=== PATIENT | male | born 1970 | race Two or more races ===

== ENCOUNTER 2019-12-13 11:21 | Inpatient (IN) | payer MEDICARE, OTHER ==
[~2019-12-13] VITALS: Ht 170.2 cm; Wt 61.7 kg
[2019-12-13] MEDS ORDERED: MAG HYDROX/AL HYDROX/SIMETH 30 ML UDC PO PRN (20:00)
[2019-12-13] MEDS ORDERED: LORAZEPAM 0.5 MG TABLET PO PRN (20:00)
[2019-12-13] MEDS ORDERED: MAGNESIUM HYDROXIDE 30 ML UDC PO PRN (20:00)
[2019-12-13] MEDS ORDERED: ACETAMINOPHEN 325 MG TABLET PO PRN (20:00)
[2019-12-13] MEDS ORDERED: BLOOD SUGAR DIAGNOSTIC 1 EACH STRIP IN ONE (20:00)
[2019-12-13] MEDS ORDERED: TEMAZEPAM 7.5 MG CAPSULE PO PRN (20:00)
[2019-12-13 20:09] VITALS: BP 91/56
[2019-12-13] MEDS ORDERED: ARIP20TA4 PO (21:16)
[2019-12-13] MEDS ORDERED: HYDR-3895 PO (21:16)
[2019-12-13] MEDS ORDERED: ARIP5TAB10 PO (21:16)
--- NOTE | 2019-12-13 22:00 | NUR ---
GPS RN NOTE: ADMISSION NOTE PT ARRIVED ON THE UNIT AT 1935 COMING FROM [facility], PT IS A 49 Y/O MALE PLACED ON A 5150 DUE TO DTS, PER HOLD PT STATED HE HAD VOICES TELLING HIM TO KILL HIMSELF, PT HAS PAST SUICIDE ATTEMPTS. PT MEDICAL HISTORY INCLUDES HEPATITIS C, PSYCHIATRIC HISTORY OF SCHIZOPHRENIA, ANXIETY AND DEPRESSION. PT IS COOPERATIVE, CALM, ISOLATIVE, GUARDED, DEPRESSED, FLAT, BLUNT AFFET, AMBULATORY, CONTINENT. PT ADMITS TO AUDITORY HALLUCINATION PT STATES THE VOICES WERE TELLING HIM TO KILL HIMSELF, WHEN ASKING WHAT THE VOICES ARE SAYING NOW HE STATED "THEY'RE TELLING ME NOT TO TELL YOU ANYTHING", WHEN ASKED WHAT HELPS THEM GO AWAY HE STATED "I DONT KNOW". HE STATED THE VOICES ARE VERY MEAN AND CRITICIZE HIM. PT HAS HISTORY OF DRUG AND ALCOHOL ABUSE, PT STATED HE WAS 6 MONTHS SOBER AND RECENTLY RELAPSED ON METHAMPHETAMINE. PT STATES HE DRINKS A 6PACK OF BEER A DAY AND DOES NOT SMOKE. [facility] [facility] [place] [facility] [place], DOES NOT WORK AND DOES NOT HAVE ANY FAMILY OR FRIENDS HE WISHES US TO NOTIFY OF HIS HOSPITALIZATION. PT IS ADVISED OF HOLD, CONTRABOUND WAS TAKEN FROM PT AND PLACED IN PTS LOCKER. PT WILL BE UNDER THE PSYCHIATRIC CARE OF DR. BRITT AND MEDICAL CARE OF DR. MORILLO. PTS RIGHTS BOOKLET AND ADVISEMENT GIVEN TO PT, PT MADE AWARE OF THE UNIT, ALL NEEDS MET AT THIS TIME. WILL CONTINUE TO MONITOR Q15MIN FOR SAFETY AND BEHAVIOR.
[2019-12-13 23:35] VITALS: BP 91/56
--- NOTE | 2019-12-13 23:37 | NUR ---
GPS RN NOTE MED RECON DONE, WRECKING CAR DRIVER DR. ROWDY ANGEL WAS MADE AWARE. WILL CONTINUE TO MONITOR Q15MIN FOR SAFETY AND BEHAVIOR.
[2019-12-14] MEDS ORDERED: hydrOXYzine PAMOATE 25 MG CAPSULE PO PRN (01:00)
[2019-12-14 07:39] LABS: BASOPHILS % (AUTO) 0.6 % (0.0-2.0); EOSINOPHILS % (AUTO) 2.6 % (0.0-6.0); HEMATOCRIT 44 % (39-51); HEMOGLOBIN 15.2 g/dL (13.5-17.5); LYMPHOCYTES # (AUTO) 1.5 /CMM (0.8-4.8); LYMPHOCYTES % (AUTO) 24.9 % (20.0-44.0); MEAN CORPUSCULAR HGB CONC 35 g/dl (31.0-36.0); MEAN CORPUSCULAR VOLUME 86 fL (80-96); MONOCYTES # (AUTO) 0.4 /CMM (0.1-1.30); MONOCYTES % (AUTO) 6.6 % (2.0-12.0); NEUTROPHILS # (AUTO) 3.9 /CMM (1.8-8.9); NEUTROPHILS % (AUTO) 65.3 % (43.0-81.0); PLATELET COUNT (AUTO) 167 /CMM (150-450)
[2019-12-14 08:00] VITALS: BP 78/48
--- NOTE | 2019-12-14 08:41 | NUR ---
RN NOTE:PATIENT C/O ANXIETY MEDICATED WITH ATIVAN 0.5MG PO X1.
[2019-12-14 08:59] LABS: ALBUMIN 3.5 g/dL (3.4-5.0); BILIRUBIN,TOTAL 0.6 mg/dL (0.2-1.0); CALCIUM, SERUM 8.6 mg/dL (8.5-10.1); CREATININE 0.8 mg/dL (0.6-1.3); TOTAL PROTEIN, SERUM 6.4 g/dL (6.4-8.2)
[2019-12-14] MEDS ORDERED: risperiDONE 1 MG TABLET PO SCH (09:30)
[2019-12-14] MEDS: SERTRALINE HCL 50 MG TABLET PO SCH (09:30)
[2019-12-14] MEDS ORDERED: LORAZEPAM 0.5 MG TABLET PO PRN (09:30)
--- NOTE | 2019-12-14 10:53 | NUR ---
INITIAL DISCHARGE PLAN: Patient resides at home [address] [address], [place] [address] ([phone]) and would like to return home upon discharge. Patient does not have any next of kin to contact at this time. SW will continue to work with patient and MD to ensure a safe and proper discharge plan.
[2019-12-14 16:00] VITALS: BP 87/58
[2019-12-14] MEDS: risperiDONE 1 MG TABLET PO SCH ×2 (17:30→21:07)
[2019-12-14 19:35] VITALS: BP 99/60
[2019-12-15 08:00] VITALS: BP 100/59
[2019-12-15] MEDS: SERTRALINE HCL 50 MG TABLET PO SCH (08:07)
[2019-12-15] MEDS: risperiDONE 1 MG TABLET PO SCH ×3 (08:08→21:00)
--- NOTE | 2019-12-15 12:40 | NUR ---
COORDINATION OF CARE: Pt stated he has a gearcase assembler, Marleen at [address] [place] [address] ([phone]), however SW attempted to call several times and no answer. Left a voicemail and waiting for a return call.
--- NOTE | 2019-12-15 13:34 | NUR ---
SUBSTANCE ABUSE INTERVENTION: Patient was provided with a brief substance abuse intervention and referred to the following substance abuse programs: [facility] Substance Abuse Self-helpline ([phone]); [facility] [address] [place] [address] ([phone]); [facility] [address] [facility] [address] ([phone]); [facility] ([phone]); [facility] ([phone]); [facility] ([phone]); [facility] ([phone]).
[2019-12-15 16:00] VITALS: BP 105/64
[2019-12-15] MEDS: ENSURE ENLIVE 237 ML LIQUID (VANILLA) PO SCH (17:26)
[2019-12-15 20:13] VITALS: BP 101/53
--- NOTE | 2019-12-15 21:07 | NUR ---
GPS-RN NOTE: SCHEDULED RISPERDAL NOT ADMINISTERED DUE TO DECREASED BLOOD PRESSURE. WILL ENDORSE TO THE DAY SHIFT NURSE.
[2019-12-16 08:00] VITALS: BP 99/69
[2019-12-16] MEDS: risperiDONE 1 MG TABLET PO SCH ×2 (08:09→21:17)
[2019-12-16] MEDS: SERTRALINE HCL 50 MG TABLET PO SCH (08:09)
[2019-12-16] MEDS: ENSURE ENLIVE 237 ML LIQUID (VANILLA) PO SCH ×2 (08:09→17:08)
[2019-12-16 16:00] VITALS: BP 100/60
[2019-12-16] MEDS: LORAZEPAM 1 MG TABLET PO PRN (17:26)
--- NOTE | 2019-12-16 17:26 | NUR ---
gps rn note: patient feeling agitated request ativan,ativan 1 mg po q4 hr prn given per order
[2019-12-16 19:43] VITALS: BP 100/66
[2019-12-17 08:00] VITALS: BP 99/65
[2019-12-17] MEDS: risperiDONE 1 MG TABLET PO SCH ×2 (08:15→21:41)
[2019-12-17] MEDS: SERTRALINE HCL 50 MG TABLET PO SCH (08:15)
[2019-12-17] MEDS: ENSURE ENLIVE 237 ML LIQUID (VANILLA) PO SCH ×2 (08:15→17:33)
--- NOTE | 2019-12-17 09:55 | NUR ---
PC HEARING: Patient had his probable cause hearing today and it was upheld for Danger to Self.
[2019-12-17 16:00] VITALS: BP 95/58
[2019-12-17 19:50] VITALS: BP 91/54
[2019-12-17] MEDS: LORAZEPAM 1 MG TABLET PO PRN (20:05)
--- NOTE | 2019-12-17 20:08 | NUR ---
GPS RN NOTE: ANXIETY PT. C/O OF BEING ANXIOUS. ADMINISTERED ATIVAN 1 MG PO PRN ORDERED. WILL CONTINUE TO MONITOR FOR SAFETY AND BEHAVIOR.
[2019-12-18] MEDS: ENSURE ENLIVE 237 ML LIQUID (VANILLA) PO SCH ×2 (07:53→16:40)
[2019-12-18 08:00] VITALS: BP 96/56
[2019-12-18 08:49] LABS: CALCIUM, SERUM 8.4 mg/dL (8.5-10.1); CREATININE 0.8 mg/dL (0.6-1.3); POTASSIUM 4.2 mmol/L (3.5-5.1)
[2019-12-18] MEDS: SERTRALINE HCL 50 MG TABLET PO SCH (09:16)
[2019-12-18] MEDS: risperiDONE 1 MG TABLET PO SCH ×2 (09:16→20:37)
[2019-12-18 16:00] VITALS: BP 98/57
[2019-12-18 20:34] VITALS: BP 94/57
--- NOTE | 2019-12-18 20:37 | NUR ---
GPS RN NOTES: HELD RISPERDAL HELD PTS RISPERDAL 2MG PO SCHEDULED DUE TO BLOOD PRESSURE LOW AND PT ASLEEP. NO SOB. NO RESP DISTRESS. BREATHING EVEN AND UNLABORED. WILL ENDORSE TO DAY SHIFT. CONTINUE TO MONITOR.
[2019-12-19] MEDS: SERTRALINE HCL 50 MG TABLET PO SCH (07:54)
[2019-12-19] MEDS: ENSURE ENLIVE 237 ML LIQUID (VANILLA) PO SCH ×2 (07:54→17:36)
[2019-12-19 08:00] VITALS: BP 91/53
[2019-12-19] MEDS: risperiDONE 1 MG TABLET PO SCH ×2 (10:05→20:37)
[2019-12-19 16:00] VITALS: BP 91/53
[2019-12-19 19:56] VITALS: BP 102/63
[2019-12-20 08:00] VITALS: BP 98/63
[2019-12-20] MEDS: SERTRALINE HCL 50 MG TABLET PO SCH (08:16)
[2019-12-20] MEDS: risperiDONE 1 MG TABLET PO SCH ×2 (08:16→21:00)
[2019-12-20] MEDS: ENSURE ENLIVE 237 ML LIQUID (VANILLA) PO SCH ×2 (08:21→17:31)
[2019-12-20 16:00] VITALS: BP 97/61
[2019-12-20 19:47] VITALS: BP 90/56
[2019-12-20 20:19] VITALS: BP 90/56
--- NOTE | 2019-12-20 21:29 | NUR ---
GPS RN NOTES: HELD RISPERDAL AT 2100 HELD PATIENT'S RISPERDAL 2MG PO SCHEDULED AT 2100 DUE TO DECREASED BLOOD PRESSURE 92/58, 70, 18, 97.5, 98% AT RA. DENIES SI/HI AT THIS TIME, CALM & RELAXED, COOPERATIVE. NO SOB. NO RESP DISTRESS. BREATHING EVEN AND UNLABORED. PO FLUIDS GIVEN & TOLERATED WELL WILL CONTINUE TO MONITOR.
[2019-12-21 08:00] VITALS: BP 95/56
[2019-12-21] MEDS: SERTRALINE HCL 50 MG TABLET PO SCH (08:19)
[2019-12-21] MEDS: ENSURE ENLIVE 237 ML LIQUID (VANILLA) PO SCH ×2 (08:20→16:17)
[2019-12-21] MEDS: risperiDONE 1 MG TABLET PO SCH ×2 (09:49→20:10)
[2019-12-21 16:00] VITALS: BP 105/63
[2019-12-21 20:02] VITALS: BP 101/63
[2019-12-22 08:00] VITALS: BP 87/60
[2019-12-22 08:30] VITALS: BP 92/53
[2019-12-22] MEDS: risperiDONE 1 MG TABLET PO SCH ×2 (09:00→20:37)
[2019-12-22] MEDS: SERTRALINE HCL 50 MG TABLET PO SCH (09:58)
[2019-12-22] MEDS: ENSURE ENLIVE 237 ML LIQUID (VANILLA) PO SCH ×2 (09:58→17:24)
--- NOTE | 2019-12-22 14:02 | NUR ---
GROUP THERAPY: SW encouraged pt to attend group therapy on this present day. Pt stated he did not want to join group today as he stated he feels better and is leaving tomorrow. Pt was observed pacing the hallway and appears with anxious mood.
[2019-12-22 16:00] VITALS: BP 92/70
--- NOTE | 2019-12-22 18:00 | NUR ---
quiet,med compliant,states sore throat in am but gone now.
[2019-12-22 20:04] VITALS: BP 109/68
[2019-12-23 08:00] VITALS: BP 95/58
[2019-12-23] MEDS: ENSURE ENLIVE 237 ML LIQUID (VANILLA) PO SCH (08:12)
[2019-12-23] MEDS: SERTRALINE HCL 50 MG TABLET PO SCH (08:13)
[2019-12-23] MEDS: risperiDONE 1 MG TABLET PO SCH (08:13)
--- NOTE | 2019-12-23 08:13 | NUR ---
GPS RN Note: Risperdal Held Risperdal held for BP 95/58. Patient currently presents as pleasant, cooperative, denies SI. Patient endorses future plans, is committed to staying clean and sober, and plans to attend zoom meetings for NA/AA. Will continue to monitor Q15 for mood, safety and behavior. D/C planned for today around 1300.
--- NOTE | 2019-12-23 08:19 | NUR ---
DISCHARGE NOTE: Pt will be discharged at 1:00pm via [facility] home [address], [facility] [address]. Pt has no family to contact. Pts mood is anxious with congruent affect. Pt denies visual/auditory hallucinations and denies suicidal/homicidal ideation. Pt is alert and oriented x4 and is ambulatory and appropriately dressed and groomed. Patient has a history of substance use and was provided referral to address his substance use. Patient was referred to [facility] Address: [address], [place] [address] and was encouraged to present for an intake at 9am on Friday12/24/19. Additional resources included [facility] [address] [place] [address] and [facility] [address] [place] [address] . Pt will follow up with Psychiatrist: Dr. Stovall [address] [address] ([phone]) on Friday12/27/19 at 11:00am. Pt will also follow up with [facility] [address], [place] [address] ([phone]) on Friday01/07/20 at 3:00pm. The multidisciplinary exit care form was done, printed, signed, and given to the patient.
[2019-12-23] MEDS ORDERED: PNEUMOCOCCAL 23-VAL P-SAC VAC 0.5 ML VIAL SQ ONE (09:30)
--- NOTE | 2019-12-23 13:07 | NUR ---
GPS RN NOTE: DISCHARGE NOTE PATIENT DISCHARGED TODAY AT 1305 TO HIS APARTMENT LOCATED AT [address], [place], [address]. PATIENT LEFT THE UNIT AMBULATORY ACCOMPANIED BY 1 STAFF TO THE MAIN LOBBY AND PICKED UP BY [employer]. PATIENT IS IN STABLE CONDITION. VSS. NO ACUTE DISTRESS NOTED. NO COMPLAINTS. COMPLIANT WITH MEDICATION MANAGEMENT. ENCOURAGED TO PURCHASE BP MONITOR TO TRACK BP DUE TO HOLD PARAMETERS ON ONE OF HIS MEDICATIONS. EDUCATED ON HOLD PARAMETERS. NOTIFIED TO CALL 911 OR GO TO NEAREST EMERGENCY ROOM IF EXPERIENCING SUICIDAL IDEATION AGAIN. DENIES SI/HI AND VAH. COOPERATIVE WITH PLAN OF CARE. PSYCHIATRIC TREATMENT PLANS MET. MEDICAL TREATMENT PLANS DEFERRED FOR CONTINUAL MONITORING. DENIES SI/HI/VAH AT THE TIME OF DISCHARGE. SKIN CHECK DONE. SKIN IS CLEAN, DRY AND INTACT. UPDATED SKIN PHOTO IN CHART. EDUCATED PATIENT ABOUT AFTERCARE WITH COPY PROVIDED. RETURNED PERSONAL BELONGINGS AND HOME MEDICATIONS TO PATIENT. MEDICATIONS RECONCILED WITH DR BRITT ALONG WITH PSYCHIATRIC DISCHARGE ORDERS. PRESCRIPTION GIVEN TO PATIENT. DISCHARGE PAPERWORK SIGNED. FOR FOLLOW UP WITH PSYCHIATRIST AND FILLER WIPER WITHIN 1 WEEK.
== END 2019-12-23 13:05 | disposition home or self-care (01) | DRG 885 ==
LOC: GPS 19:28
PROVIDERS: ADMIT Psychiatry & Neurology Psychiatry; ATTEND Nurse Practitioner Acute Care
DX: F20.9 Schizophrenia, unspecified (principal); B18.2 Chronic viral hepatitis C; F29 Unspecified psychosis not due to a substance or known physiological condition; F32.9 Major depressive disorder, single episode, unspecified; F41.9 Anxiety disorder, unspecified; F15.10 Other stimulant abuse, uncomplicated; R79.89 Other specified abnormal findings of blood chemistry
CPT/HCPCS: 36415; 80048-TC; 80053-TC; 80061-TC; 82962-TC; 85025-TC; 87081-TC; 90732